=== PATIENT | female | born 1985 | race Hispanic/Latino ===

== ENCOUNTER 2017-11-16 17:05 | Emergency (ER) | payer MEDICAID, SELFPAY ==
[2017-11-16 17:31] LABS: #Basophils 0.1 thou/uL (0.0-0.2); #Eosinphils 0.7 thou/uL (0.0-0.7); #Lymphocytes 1.9 thou/uL (1.20-3.40); #Monocytes 0.6 thou/uL (0.11-0.59); #Neutrophils 5.6 thou/uL (1.40-6.50); %Basophils 0.8 % (0.0-1.0); %Eosinophils 8.2 % (0.0-10.0); %Lymphocytes 21.1 % (21.0-51.0); %Monocytes 7.1 % (0.0-10.0); %Neutrophils 62.8 % (42.0-75.0); Hemoglobin 13.3 g/dL (12.0-16.0); Mean Corpuscular HGB CONC 34.7 g/dL (32.0-36.0); Mean Corpuscular Hemoglobin 34.3 pg (27.0-31.0); Mean Corpuscular Volume 98.8 fl (81.0-99.0); Mean Platelet Volume 6.2 fL (7.4-10.4); Platelet Count 432 thou/uL (130-400); RBC Distribution Width 11.5 % (11.5-14.5); Red Blood Cell (RBC) Count 3.87 mill/uL (4.20-5.40)
[2017-11-16 17:35] LABS: Bilirubin Negative (Negative); Blood, Urine Moderate (Negative); Clarity CLEAR (Clear); Glucose, Urine (Dipstick) Negative (Negative); Leukocyte Trace (Negative); Nitrite Negative (Negative); Protein, Urine (Dipstick) Trace mg/dL (Neg-Trace); Specific Gravity, Urine 1.028 (1.002-1.036); Urobilinogen 0.2 mg/dL (0.2-1.0); pH, Urine 7.5 (5.0-9.0)
[2017-11-16 17:37] LABS: Bacteria/HPF None Seen HPF (None Seen); Hyaline Casts/LPF 4-6 HYALINE CAST LPF (0-3 Hyaline); Pathc Cast-AUWi Flag 0.67 (0-2.49); Pregnancy Test - Urine (BHCG) Negative (Negative); Pregu Control Background? CLEAR/WHITE (CLR/WHITE); Pregu Control Bar Appear? YES (CONTROL BAR); RBC/HPF GREATER THAN 50-TNTC HPF (0-3); Specific Gravity 1.028 (1.002-1.036); WBC/HPF 0-3 HPF (0-3)
[2017-11-16 17:55] LABS: ALT (SGPT) 11 U/L (8-55); AST (SGOT) 15 U/L (5-34); Albumin 4.1 g/dL (3.5-5.0); Alkaline Phosphatase 85 U/L (40-150); Anion Gap 12 mmol/L (10-20); BUN (Urea Nitrogen) 6 mg/dL (7.0-18.7); Bilirubin, Total 0.2 mg/dL (0.2-1.2); Calc. Creatinine Clearance 0 mL/min (70-130); Calcium 9.5 mg/dL (7.8-10.44); Carbon Dioxide 25 mmol/L (22-29); Chloride 105 mmol/L (98-107); Estimated GFR-MDRD Greater than 90; Globulin 3.1 g/dL (2.4-3.5); Glucose 89 mg/dL (70-105); Potassium 3.9 mmol/L (3.5-5.1); Protein, Total 7.2 g/dL (6.0-8.3); Sodium 138 mmol/L (136-145)
[2017-11-16 17:56] LABS: Trichomonas/HPF Rare HPF (None Seen)
[2017-11-16 19:05] LABS: Magnesium 2.2 mg/dL (1.6-2.6)
[2017-11-16] MEDS ORDERED: cefTRIAXone\\ROCEPHIN 250 MG VIAL ONE (20:28)
[2017-11-16] MEDS ORDERED: Lidocaine 1% PF 5 ML VIAL ONE (20:28)
[2017-11-16] MEDS ORDERED: Azithromycin 250 MG TAB ONE (20:28)
[2017-11-16] MEDS ORDERED: Lidocaine 1% (PF) 30 ML VIAL ONE (20:29)
== END 2017-11-16 21:16 | disposition home or self-care (01) ==
LOC: ERS 17:05
DX: N72 Inflammatory disease of cervix uteri (principal)
CPT/HCPCS: 36415; 80053; 81003; 81015; 81025; 83690; 83735; 85025; 87480; 87510; 87660; 96372; J0696; J2001

== ENCOUNTER 2018-03-23 21:03 | Emergency (ER) | payer MEDICAID | END 2018-03-23 21:57 | disposition home or self-care (01) | LOC: ERS 21:03 | DX: K02.9 Dental caries, unspecified (principal); K03.81 Cracked tooth | CPT/HCPCS: 99282 ==

== ENCOUNTER 2018-03-28 00:45 | Emergency (ER) | payer MEDICAID ==
[2018-03-28] MEDS ORDERED: Lidocaine 1% PF 5 ML VIAL ONE (01:57)
[2018-03-28] MEDS ORDERED: Ibuprofen 800 MG TAB ONE (02:52)
== END 2018-03-28 02:56 | disposition home or self-care (01) ==
LOC: ERS 00:45
DX: K04.7 Periapical abscess without sinus (principal)
CPT/HCPCS: 41800; J2001

== ENCOUNTER 2018-06-04 01:07 | Emergency (ER) | payer MEDICAID, OTHER | END 2018-06-04 02:23 | disposition home or self-care (01) | LOC: ERS 01:07 | DX: K02.9 Dental caries, unspecified (principal) | CPT/HCPCS: 99283 ==